=== PATIENT | female | born 1980 | race American Indian/Alaskan Native ===

== ENCOUNTER 2017-08-09 14:43 | Emergency (ER) | payer MEDICAID ==
--- NOTE | 2017-08-09 16:03 | Emergency Department Report ---
Blank Doc - Documentation Documentation: Patient is a 37-year-old female who is presenting with 1 day of vaginal bleeding. Patient notes some dark blood and her pain liner. Patient is approximately 9 weeks . Patient LAST WEEK THAT SHOWED A VIABLE IUP AT 8 WEEKS. PATIENT STATES OF SOME MILD CRAMPY ABDOMINAL PAIN. PATIENT STATES THAT SHE HAS HAD 3 PRIOR MISCARRIAGES. PATIENT DENIES ANY FEVERS CHILLS NAUSEA VOMITING. PATIENT'S RH STATUS IS A POSITIVE AND THEREFORE SHE DOES NOT NEED A REPEAT OF HER BLOOD TYPING. PATIENT MOVED FAST TRACK AREA FOR BETA QUANT, URINALYSIS, AND ULTRASOUND TO ASSESS VIABILITY VIABILITY OF THE PATIENT'S . PATIENT to BE REASSESSED.
[2017-08-09 16:49] LABS: Bilirubin,Urine NEG (Negative); Blood,Urine LG (Negative); Color,Urine Yellow (Yellow); Mucus,Urine 3+ /HPF; Urobilinogen,Urine < 2.0 mg/dL (<2.0)
--- NOTE | 2017-08-09 18:48 | Emergency Department Report ---
ED Female HPI - General Chief complaint: Vaginal Bleeding Stated complaint: VAGINAL BLEEDING/ Time Seen by Provider: 08/09/17 15:53 Source: patient Mode of arrival: Ambulatory Limitations: No Limitations - History of Present Illness Initial comments: Patient is a 37-year-old female who is presenting with 1 day of vaginal bleeding. Patient notes some dark blood and her pain liner. Patient is approximately 9 weeks . Patient LAST WEEK THAT SHOWED A VIABLE IUP AT 8 WEEKS. PATIENT STATES OF SOME MILD CRAMPY ABDOMINAL PAIN. PATIENT STATES THAT SHE HAS HAD 3 PRIOR MISCARRIAGES. PATIENT DENIES ANY FEVERS CHILLS NAUSEA VOMITING. PATIENT'S RH STATUS IS A POSITIVE AND THEREFORE SHE DOES NOT NEED A REPEAT OF HER BLOOD TYPING. PATIENT MOVED FAST TRACK AREA FOR BETA QUANT, URINALYSIS, AND ULTRASOUND TO ASSESS VIABILITY VIABILITY OF THE PATIENT'S . PATIENT to BE REASSESSED. MD Complaint: vaginal bleeding (spotting light x 1 day ) Onset/Timin -: days(s) Severity scale (0 -10): 2 Consistency: intermittent Improves with: none Worsens with: none Are you Now?: Yes Last Menstrual Period: 06/07/17 EDC: 03/14/18 Associated Symptoms: vaginal bleeding - Related Data Sexually active: Yes Previous Rx's Medication Instructions Recorded Last Taken Type Acetaminophen [Acetaminophen ER 650 mg PO QID PRN #30 tablet.er 08/09/17 Unknown Rx TAB] Allergies Allergy/AdvReac Type Severity Reaction Status Date / Time No Known Allergies Allergy Unverified 10/17/15 08:00 ED Review of Systems ROS: Stated complaint: VAGINAL BLEEDING/ Other details as noted in HPI Constitutional: denies: chills, fever Eyes: denies: eye pain, eye discharge, vision change ENT: denies: ear pain, throat pain Respiratory: denies: cough, shortness of breath, wheezing Cardiovascular: denies: chest pain, palpitations Endocrine: no symptoms reported Gastrointestinal: denies: abdominal pain, nausea, diarrhea Genitourinary: other (vaginal spotting ). denies: urgency, dysuria, frequency, hematuria, discharge, abnormal menses, dyspareunia Musculoskeletal: denies: back pain, joint swelling, arthralgia Skin: denies: rash, lesions Neurological: as per HPI Psychiatric: denies: anxiety, depression Hematological/Lymphatic: as per HPI ED Past Medical Hx - Past Medical History Additional medical history: - Surgical History Additional Surgical History: x1 - Social History Smoking Status: Current Every Day Smoker Substance Use Type: Alcohol, Non Opiate Pain - Medications Home Medications: Home Medications Medication Instructions Recorded Confirmed Last Taken Type Acetaminophen [Acetaminophen ER 650 mg PO QID PRN #30 tablet.er 08/09/17 Unknown Rx TAB] ED Physical Exam - General Limitations: No Limitations General appearance: alert, in no apparent distress - Head Head exam: Present: atraumatic, normocephalic - Eye Eye exam: Present: normal appearance - ENT ENT exam: Present: mucous membranes moist - Neck Neck exam: Present: normal inspection - Respiratory Respiratory exam: Present: normal lung sounds bilaterally. Absent: respiratory distress - Cardiovascular Cardiovascular Exam: Present: regular rate, normal rhythm. Absent: systolic murmur, diastolic murmur, rubs, gallop - GI/Abdominal GI/Abdominal exam: Present: soft, normal bowel sounds. Absent: distended, tenderness, guarding, rebound, rigid, organomegaly, mass, bruit, pulsatile mass , hernia - Rectal Rectal exam: Present: deferred - External exam: Present: other (deferred per patient) - Extremities Exam Extremities exam: Present: normal inspection - Back Exam Back exam: Present: normal inspection - Neurological Exam Neurological exam: Present: alert, oriented X3, CN II-XII intact, normal gait, reflexes normal - Psychiatric Psychiatric exam: Present: normal affect, normal mood - Skin Skin exam: Present: warm, dry, intact, normal color. Absent: rash ED Course Vital Signs 08/09/17 14:56 Temperature 98.5 F Pulse Rate 92 H Respiratory 16 Rate Blood Pressure 131/80 O2 Sat by Pulse 99 Oximetry ED Medical Decision Making - Lab Data Laboratory Tests 08/09/17 08/09/17 16:29 16:32 HCG, Quant [id number] H Urine Color Yellow Urine Turbidity Clear Urine pH 5.0 Ur Specific [place] 1.030 Urine Protein 30 mg/dl Urine Glucose (UA) Neg Urine Ketones 20 Urine Blood Lg Urine Nitrite Neg Urine Bilirubin Neg Urine Urobilinogen < 2.0 Ur Leukocyte Esterase Neg Urine WBC (Auto) 1.0 Urine RBC (Auto) 4.0 U Epithel Cells (Auto) 5.0 Urine Mucus 3+ - Radiology Data Radiology results: report reviewed, image reviewed intact single IUP 9 weeks 0 days, hr 171 - Medical Decision Making The patient denies vaginal bleeding thistime no cramping no nausea vomiting no fever chills hCG 14764, UA normal ultrasound single IUP 9 weeks 0 days heart rate 171 intact IUP discussed symptoms of threatening miscarriage patient has good [employer] follow-up will follow with Dr. Davis tomorrow at [facility] [employer] patient has confirmed appointment for same patient will DC DC'd to home in stable condition at this time. Critical care attestation.: If time is entered above; I have spent that time in minutes in the direct care of this critically ill patient, excluding procedure time. ED Disposition Clinical Impression: Vaginal bleeding during Disposition: DC-01 TO HOME OR SELFCARE Is pt being admited?: No Does the pt Need Aspirin: No Condition: Good Instructions: Threatened Miscarriage (ED) Prescriptions: Acetaminophen [Acetaminophen ER TAB] 650 mg PO QID PRN #30 tablet.er PRN Reason: Pain Referrals: BIPIN TREJO MD [Primary Care Provider] - 3-5 Days Forms: Work/School Release Form(ED) Time of Disposition: 18:51
--- NOTE | 2017-08-09 19:03 | Ultrasound Report ---
FINAL REPORT PROCEDURE: US OB TRANSVAGINAL and transabdominal TECHNIQUE: Real-time transabdominal and transvaginal sonography of the uterus, placenta, amniotic fluid, adnexa, and fetus was performed with image documentation. Measurements were obtained to determine age/size. M-mode Doppler was used to document heartbeat. CPT 67717 and 83648 HISTORY: preg with vag bleeding COMPARISON: No prior studies are available for comparison. FINDINGS: ADDITIONAL GESTATION: None. CRL: 22.8 mm, which corresponds to a gestational age of: 9 weeks, 0 days. Yolk Sac: Normal. Embryonic Cardiac Activity: 176 beats per minute Gestational Sac: Normal. Amniotic fluid: Normal. Cervix: Normal. Right Ovary: Complex cystic structure is present, measuring up to 2.1 centimeters Left Ovary: Normal. Estimated delivery date: 03/14/2018 Uterus and adnexa: There are 2 posterior mural fibroids in the uterine body, measuring up to 1.8 centimeters. IMPRESSION: 1. Single live intrauterine gestation at approximately 9 weeks, 0 days. 2. EDC by US 03/14/2018 3. Complete anatomic survey at 18-20 weeks suggested.
--- NOTE | 2017-08-09 19:05 | Ultrasound Report ---
FINAL REPORT PROCEDURE: US OB TRANSVAGINAL and transabdominal TECHNIQUE: Real-time transabdominal and transvaginal sonography of the uterus, placenta, amniotic fluid, adnexa, and fetus was performed with image documentation. Measurements were obtained to determine age/size. M-mode Doppler was used to document heartbeat. CPT 80835 and 77657 HISTORY: preg with vag bleeding COMPARISON: No prior studies are available for comparison. FINDINGS: ADDITIONAL GESTATION: None. CRL: 22.8 mm, which corresponds to a gestational age of: 9 weeks, 0 days. Yolk Sac: Normal. Embryonic Cardiac Activity: 176 beats per minute Gestational Sac: Normal. Amniotic fluid: Normal. Cervix: Normal. Right Ovary: Complex cystic structure is present, measuring up to 2.1 centimeters Left Ovary: Normal. Estimated delivery date: 03/14/2018 Uterus and adnexa: There are 2 posterior mural fibroids in the uterine body, measuring up to 1.8 centimeters. IMPRESSION: 1. Single live intrauterine gestation at approximately 9 weeks, 0 days. 2. EDC by US 03/14/2018 3. Complete anatomic survey at 18-20 weeks suggested. PROCEDURE: TECHNIQUE: HISTORY: COMPARISON: FINDINGS: IMPRESSION:
[2017-08-09 19:17] VITALS: BP 128/79
== END 2017-08-09 19:05 | disposition home or self-care (01) ==
LOC: ED 14:43
DX: O46.91 Antepartum hemorrhage, unspecified, first trimester (principal); F17.200 Nicotine dependence, unspecified, uncomplicated; Z3A.09 9 weeks gestation of pregnancy
CPT/HCPCS: 36415; 76801; 76817; 81001; 84702

== ENCOUNTER 2018-03-07 05:55 | Inpatient (IN) | payer MEDICAID ==
[2018-03-07] MEDS ORDERED: PEPCID IV ONE (06:25)
[2018-03-07] MEDS ORDERED: REGLAN IV ONE (06:25)
[2018-03-07] MEDS ORDERED: BICITRA PO ONE (06:25)
[2018-03-07 06:48] LABS: Basophils % (Auto) 0.5 % (0.0-1.8); Eosinophils # (Auto) 0.2 K/mm3 (0.0-0.4); Eosinophils % (Auto) 2.7 % (0.0-4.3); Hematocrit 35.5 % (30.3-42.9); Hemoglobin 11.7 gm/dl (10.1-14.3); Lymphocytes # (Auto) 1.5 K/mm3 (1.2-5.4); Lymphocytes % (Auto) 23.9 % (13.4-35.0); Mean Corpuscular HGB Conc 33 % (30-34); Mean Corpuscular Volume 83 fl (79-97); Monocytes # (Auto) 0.5 K/mm3 (0.0-0.8); Monocytes % (Auto) 7.9 % (0.0-7.3); Platelet Count 255 K/mm3 (140-440); Red Blood Count 4.31 M/mm3 (3.65-5.03)
[2018-03-07] MEDS ORDERED: PITOCin/NS 20 UNIT/1000ML DRIP 20 UNITS/1,000 ML BAG IV SCH ×4 (07:00→18:00)
[2018-03-07] MEDS ORDERED: ANCEF/STERILE WATER 2 GM/20 ML 2 GM/20 ML SYRINGE IV NR (07:00)
[2018-03-07] MEDS: LACTATED RINGERS 1,000 ML IV SCH ×2 (07:00→07:32)
--- NOTE | 2018-03-07 07:42 | History and Physical Report ---
History of Present Illness Date of examination: 03/07/18 Date of admission: 03/07/18 05:55 Chief complaint: scheduled repeat History of present illness: This is a 38 yo at 39 weeks EDC 03/14/18 here for scheduled repeat csec and salpingectomy. Patient has a history of fibroids and AMA and MO. Patient seen by high risk and followed. She is a patient of [facility] care at 10 weeks. Past History Past Medical History: no pertinent history, other (Fibroids) Past Surgical History: section Family/Genetic History: hypertension Social history: . denies: smoking, alcohol abuse, prescription drug abuse - Obstetrical History Expected Date of Delivery: 03/14/18 Actual Gestation: 39 Week(s) 0 Day(s) : 5 Para: 1 Hx # Term Pregnancies: 1 Number of Pregnancies: 0 Spontaneous Abortions: 3 Induced : 0 Number of Living Children: 1 Medications and Allergies Allergies Allergy/AdvReac Type Severity Reaction Status Date / Time No Known Allergies Allergy Verified 03/07/18 06:25 Home Medications Medication Instructions Recorded Confirmed Last Taken Type Acetaminophen [Acetaminophen ER 650 mg PO QID PRN #30 tablet.er 08/09/17 Unknown Rx TAB] Active Meds: Active Medications Citric Acid/Sodium Citrate (Bicitra) 30 ml PO ONCE ONE Stop: 03/07/18 07:35 Famotidine (Pepcid) 20 mg IV ONCE ONE Stop: 03/07/18 07:35 Lactated Ringer's (Lactated Ringers) 1,000 mls @ 2,250 mls/hr IV PREOP ROCIO Stop: 03/08/18 07:27 Last Admin: 03/07/18 07:32 Dose: 2,250 mls/hr Documented by: Oxytocin/Sodium Chloride (Pitocin/Ns 20 Unit/1000ml Drip) 20 units in 1,000 mls @ 0 mls/hr IV TITR ROCIO Lactated Ringer's (Lactated Ringers) 1,000 mls @ 2,250 mls/hr IV PREOP ROCIO Stop: 03/08/18 08:27 Oxytocin/Sodium Chloride (Pitocin/Ns 20 Unit/1000ml Drip) 20 units in 1,000 mls @ 0 mls/hr IV TITR ROCIO Metoclopramide HCl (Reglan) 10 mg IV ONCE ONE Stop: 03/07/18 07:35 Review of Systems All systems: negative - Vital Signs Vital signs: Vital Signs Pulse BP 121 H 136/89 03/07/18 06:24 03/07/18 06:24 Temp Pulse Resp BP Pulse Ox 98.5 F 102 H 20 143/98 03/07/18 06:54 03/07/18 07:08 03/07/18 06:54 03/07/18 07:08 - Physical Exam Breasts: Positive: normal Cardiovascular: Regular rate, Normal S1 Lungs: Positive: Clear to auscultation, Normal air movement Abdomen: Positive: normal appearance, soft, normal bowel sounds. Negative: distention, tenderness, guarding Genitourinary (Female): Positive: normal external genitalia, normal perenium Vulva: both: normal Vagina: Positive: normal moisture Uterus: Positive: normal size, normal contour Extremities: Positive: normal Deep Tendon Reflex Grade: Normal +2 - Obstetrical FHR: category 1 Results Result Diagrams: 03/07/18 06:39 Abnormal lab results 03/07/18 Range/Units 06:39 MCH 27 L (28-32) pg RDW 16.0 H (13.2-15.2) % [place] % (Auto) 7.9 H (0.0-7.3) % All other labs normal. Assessment and Plan A/P scheduled repeat csec and salpingectomy discussed r/b/a of procedure which include bleeding infection damage to pelvic and non pelvic organs risk of hysterectomy and , blood clots. consents signed all questions answered to proceed to OR
[2018-03-07] MEDS ORDERED: BICITRA PO NR (08:00)
[2018-03-07] MEDS ORDERED: PEPCID IV NR (08:00)
[2018-03-07] MEDS ORDERED: LACTATED RINGERS 1,000 ML IV SCH (08:00)
[2018-03-07] MEDS ORDERED: REGLAN IV NR (08:00)
[2018-03-07] MEDS ORDERED: ZOFRAN ONE ×2 (08:02→12:54)
[2018-03-07] MEDS ORDERED: SUBLIMAZE ONE ×2 (08:02→12:54)
[2018-03-07] MEDS ORDERED: ASTRAMORPH PF 10MG/10ML ONE ×2 (08:02→12:54)
[2018-03-07] MEDS ORDERED: NEO SYNEPHRINE ONE ×2 (08:02→08:39)
--- NOTE | 2018-03-07 09:10 | Procedure Note ---
OB Delivery Note - Delivery Date of Delivery: 03/07/18 Surgeon: AMY HUSTON Estimated blood loss: other (700cc) - Section Preop diagnosis: repeat Postop diagnosis: same section procedure: section Disposition: PACU Complications: none - A at 1 minute: 8 at 5 minutes: 9 Infant Gender: Female
--- NOTE | 2018-03-07 09:17 | Operative Report ---
Operative Report Operative Report: PREOPERATIVE DIAGNOSES: 1. Intrauterine at 39 weeks. 2. History of previous section x1. The patient desires a repeat section. 3. Chronic hypertension. 4. Undesired future fertility. The patient desires permanent sterilization. POSTOPERATIVE DIAGNOSES: 1. Intrauterine at 39 weeks. 2. History of previous section x2. The patient desires a repeat section. 3. Chronic hypertension. 4. Undesired future fertility. The patient desires permanent sterilization. PROCEDURE PERFORMED: Repeat section and salpingectomy ANESTHESIA: Spinal. ESTIMATED BLOOD LOSS: 700 mL. COMPLICATIONS: None. FINDINGS: Female in cephalic presentation with anteflexed head, Apgars were 8 at 1 minute and 9 at 5 minutes, , and weight 8 pounds 3 ounces. Normal uterus, several fibroids fundal and anterior approximate measure of 2-3 cm . tubes, and ovaries were noted. INDICATIONS: The patient is a 38-year-old 5, para 1 female, who presented to repeat section at term. The patient has a history of 1 previous sections and she desires a repeat section, additionally she desires permanent fertilization. The procedure was described to the patient in detail including possible risks of bleeding, infection, injury to surrounding organs, and the possible need for further surgery and informed consent was obtained. PROCEDURE NOTE: The patient was taken to the operating room where spinal anesthesia was administered without difficulty. The patient was prepped and draped in the usual sterile fashion in the dorsal supine position with a leftward tilt. A Pfannenstiel skin incision was made with the scalpel and carried through to the underlying layer of fascia using the Bovie. The fascia was incised in the midline and extended laterally using Marley scissors. Juan Carlos clamps were used to elevate the superior aspect of the fascial incision, which was elevated, and the underlying rectus muscles were dissected off bluntly and using Marley scissors. Attention was then turned to the inferior aspect of the fascial incision, which in similar fashion was grasped with Juan Carlos clamps, elevated, and the underlying rectus muscles were dissected off bluntly and using the Bovie. The rectus muscles were dissected in the midline. The peritoneum was identified and entered using Metzenbaum scissors; this incision was extended superiorly and inferiorly with good visualization of the bladder. The bladder blade was inserted. The vesicouterine peritoneum was identified and entered sharply using Metzenbaum scissors. This incision was extended laterally and the bladder flap was created digitally. The bladder blade was reinserted. The lower uterine segment was incised in a transverse fashion using the scalpel and extended using bandage scissors as well as manual traction. Clear fluid was noted. The was subsequently delivered using a Ria vacuum due to anteflexed head and difficulty in delivering the 's head without the Ria. The nose and mouth were bulb suctioned. The cord was clamped and cut. The was subsequently handed to the awaiting nursery nurse. The placenta was delivered spontaneously intact with a three-vessel cord noted. The uterus was exteriorized and cleared of all clots and debris. The uterine incision was repaired in 2 layers using 0 chromic sutures. Hemostasis was visualized. Attention was turned to the right fallopian tube, which was grasped with Luz Elena clamp using a ligasure apparatus an entire tube ligated and removed, transected and specimen was sent to pathology. Attention was then turned to the left fallopian tube, which was grasped with Luz Elena clamp again using ligasure apparatus an entire tube was ligated and transected. Hemostasis was visualized bilaterally. The uterus was returned to the abdomen, both fallopian tubes were visualized and were noted to be hemostatic. The uterine incision was reexamined and it was noted to be hemostatic. The pelvis was copiously irrigated. The rectus muscles were reapproximated in the midline using 3-0 Vicryl. The fascia was closed with 0 Vicryl suture, the subcutaneous layer was closed with 3-0 plain gut, and the skin was closed doreen needle . Sponge, lap, and instrument counts were correct x2. The patient was stable at the completion of the procedure and was subsequently transferred to the recovery room in stable condition.
[2018-03-07] MEDS ORDERED: NARCAN 0.4 MG/1 ML IV PRN ×2 (09:30→17:14)
[2018-03-07] MEDS ORDERED: TUCKS PAD TP PRN ×2 (09:30→17:14)
[2018-03-07] MEDS ORDERED: LANSINOH TP PRN ×2 (09:30→17:14)
--- NOTE | 2018-03-07 09:34 | Anesthesia Consultation ---
Anesthesia Consult and Med Hx Date of service: 03/07/18 - Airway Anesthetic Teeth Evaluation: Good ROM Head & Neck: Adequate Mental/Hyoid Distance: Adequate Mallampati Class: Class II Intubation Access Assessment: Good - Pulmonary Exam CTA: Yes - Cardiac Exam Cardiac Exam: RRR - Pre-Operative Health Status ASA Pre-Surgery Classification: ASA1, ASA2 Proposed Anesthetic Plan: Spinal - Pulmonary Hx Smoking: No Hx Asthma: No Hx Respiratory Symptoms: No SOB: No COPD: No Home Oxygen Therapy: No Hx Pneumonia: No Hx Sleep Apnea: No - Cardiovascular System Hx Hypertension: No Hx Coronary Artery Disease: No Hx Heart Attack/AMI: No Hx Angina: No Hx Percutaneous Transluminal Coronary Angioplasty (PTCA): No Hx Cardia Arrhythmia: No Hx Pacemaker: No Hx Internal Defibrillator: No Hx Valvular Heart Disease: No Hx Heart Murmur: No - Central Nervous System Hx Neuromuscular Disorder: No Hx Seizures: No CVA: No Hx Back Pain: No Hx Psychiatric Problems: No - Gastrointestinal Hx Ulcer: No Hx Gastroesophageal Reflux Disease: No - Endocrine Hx Renal Disease: No Hx Hypothyroidism: No Hx Hyperthyroidism: No - Hematic Hx Anemia: No Hx Sickle Cell Disease: No - Other Systems Hx Alcohol Use: No Hx Substance Use: No Hx Cancer: No Hx Obesity: Yes
[2018-03-07] MEDS ORDERED: NACL 0.9% IR ONE (09:43)
[2018-03-07] MEDS ORDERED: WATER FOR IRRIG STERILE IR ONE (09:43)
[2018-03-07] MEDS ORDERED: SODIUM CHLORIDE FLUSH SYRINGE 10 ML IV PRN (10:00)
--- NOTE | 2018-03-07 11:14 | Post Anesthesia Evaluation ---
- Post Anesthesia Evaluation Patient Participated: Yes Airway Patent: Yes Stable Respiratory Function: Yes Nausea/Vomiting: No Temp > 96.8F: Yes Pain Manageable: Yes Adequeate Hydration: Yes Anesthesia Complications: No Block Receding Appropriately: Yes Patient on Ventilator: Yes
[2018-03-07 11:22] LABS: Basophils % (Auto) 0.1 % (0.0-1.8); Eosinophils # (Auto) 0.1 K/mm3 (0.0-0.4); Eosinophils % (Auto) 2.2 % (0.0-4.3); Hematocrit 36.6 % (30.3-42.9); Lymphocytes # (Auto) 1.2 K/mm3 (1.2-5.4); Lymphocytes % (Auto) 21.9 % (13.4-35.0); Mean Corpuscular HGB Conc 33 % (30-34); Mean Corpuscular Volume 81 fl (79-97); Monocytes # (Auto) 0.4 K/mm3 (0.0-0.8); Monocytes % (Auto) 6.4 % (0.0-7.3); Platelet Count 269 K/mm3 (140-440); Red Blood Count 4.51 M/mm3 (3.65-5.03)
[2018-03-07] MEDS ORDERED: NEO SYNEPHRINE/NS Syringe(OR USE) IV ONE (12:53)
[2018-03-07] MEDS ORDERED: ZOFRAN IV PRN (17:14)
[2018-03-07] MEDS ORDERED: PERCOCET 5/325 PO PRN (17:14)
[2018-03-07] MEDS ORDERED: TORADOL IV PRN (17:14)
[2018-03-07] MEDS ORDERED: DILAUDID IV PRN (17:14)
[2018-03-07] MEDS ORDERED: MORPHINE IV PRN ×2 (17:14)
[2018-03-07] MEDS ORDERED: MYLICON PO PRN (17:14)
[2018-03-07] MEDS ORDERED: ANUCORT-HC PR PRN (17:14)
[2018-03-07] MEDS ORDERED: NORCO 5/325 PO PRN (17:14)
[2018-03-07] MEDS ORDERED: IBUPROFEN PO PRN (17:14)
[2018-03-07] MEDS ORDERED: MILK OF MAGNESIA PO PRN (17:14)
[2018-03-07] MEDS ORDERED: PHENERGAN PR PRN (17:14)
[2018-03-07] MEDS ORDERED: TYLENOL PO PRN (17:14)
[2018-03-07] MEDS ORDERED: SENOKOT PO PRN (17:14)
[2018-03-07] MEDS ORDERED: SODIUM CHLORIDE FLUSH SYRINGE 10 ML IV NR (18:00)
[2018-03-07] MEDS: TORADOL IV PRN (18:49)
[2018-03-07 22:39] LABS: Hemoglobin 11.7 gm/dl (10.1-14.3)
[2018-03-08] MEDS: TORADOL IV PRN (00:03)
[2018-03-08] MEDS ORDERED: D5LR 1,000 ML IV SCH (01:00)
[2018-03-08 05:51] LABS: Hematocrit 32.9 % (30.3-42.9); Hemoglobin 10.7 gm/dl (10.1-14.3)
[2018-03-08] MEDS ORDERED: BOOSTRIX IM ONE (06:00)
[2018-03-08] MEDS ORDERED: M-M-R II VACCINE SUB-Q ONE (06:00)
[2018-03-08] MEDS: FEOSOL PO SCH (10:14)
[2018-03-08] MEDS: PRENATAL VITAMIN PO SCH (10:14)
--- NOTE | 2018-03-08 13:30 | Progress Note ---
Assessment and Plan - Patient Problems (1) Previous section Current Visit: Yes Status: Acute Subjective - Subjective Date of service: 03/08/18 Interval history: Patient without complaints. Tolerating regular diet. Pain well controlled Patient reports: appetite normal, voiding normally, pain well controlled : doing well Objective - Vital Signs Latest vital signs: Vital Signs Temp Pulse Resp BP BP Pulse Ox 03/08/18 07:43 97.3 F L 94 H 18 109/76 03/08/18 04:25 98.1 F 104 H 20 140/87 98 03/08/18 00:56 98.1 F 95 H 20 127/84 99 03/07/18 20:30 97.9 F 100 H 20 146/89 99 03/07/18 16:15 98.0 F 99 H 20 138/88 95 Intake and Output 03/07/18 03/08/18 03/08/18 22:59 06:59 14:59 Intake Total 360 480 Output Total 150 400 200 Balance -150 -40 280 Intake: Oral 360 480 Output: Urine 150 400 200 Indwelling Catheter 150 200 Void 200 200 Other: Total, Intake Amount 120 480 Total, Output Amount 150 200 200 # Voids Void 1 2 - Exam Abdomen: Present: normal appearance, soft
--- NOTE | 2018-03-08 13:31 | Discharge Summary ---
Providers - Providers Date of Admission: 03/07/18 05:55 Date of discharge: 03/09/18 Attending physician: AMY HUSTON MD Primary care physician: AMY HUSTON MD Hospitalization Reason for admission: section Delivery: Procedure: section, bilateral tubal ligation, repeat low transverse Incision: normal Discharge diagnosis: IUP at term delivered [place] baby: female Hospital course: Patient admitted the day of surgery for a repeat . See op note. Postop unremarkable Condition at discharge: Good Disposition: DC-01 TO HOME OR SELFCARE - Discharge Diagnoses (1) Previous section Status: Acute Plan - Discharge Medications Prescriptions: Ferrous Sulfate 325 mg PO BID #60 tablet. Ibuprofen [Motrin] 600 mg PO Q8H PRN #30 tablet PRN Reason: Pain oxyCODONE /ACETAMINOPHEN [Percocet 5/325] 1 tab PO Q6HR PRN #30 tablet PRN Reason: Pain - Provider Discharge Summary Activity: no sex for 6 weeks, no heavy lifting 4 weeks, no strenuous exercise Diet: routine Instructions: routine Additional instructions: [] Smoking cessation referral if applicable(refer to patient education folder for contact #) [] Refer to [facility] Booklet Call your doctor immediately for: * Fever > 100.5 * Heavy vaginal bleeding ( >1 pad per hour) * Severe persistent headache * Shortness of breath * Reddened, hot, painful area to leg or breast * Drainage or odor from incision. * Keep incision clean and dry at all times and follow doctor's instructions regarding bathing/showering schedule followup in 2 weeks - Follow up plan
[2018-03-09] MEDS: FEOSOL PO SCH (10:00)
[2018-03-09] MEDS: PRENATAL VITAMIN PO SCH (10:00)
[2018-03-09 13:49] VITALS: BP 133/94
== END 2018-03-09 13:45 | disposition home or self-care (01) | DRG 765 ==
LOC: APU 05:55 → OB 10:42
PROVIDERS: ADMIT Obstetrics & Gynecology; ATTEND Obstetrics & Gynecology
PROC: 10D00Z1 Extraction of Products of Conception, Low, Open Approach (ICD-10-PCS; principal; 2018-03-07)
PROC: 0UB70ZZ Excision of Bilateral Fallopian Tubes, Open Approach (ICD-10-PCS; 2018-03-07)
PROC: 3E0234Z Introduction of Serum, Toxoid and Vaccine into Muscle, Percutaneous Approach (ICD-10-PCS; 2018-03-08)
DX: O34.211 Maternal care for low transverse scar from previous cesarean delivery (principal); O10.92 Unspecified pre-existing hypertension complicating childbirth; O99.214 Obesity complicating childbirth; E66.01 Morbid (severe) obesity due to excess calories; Z82.49 Family history of ischemic heart disease and other diseases of the circulatory system; Z3A.39 39 weeks gestation of pregnancy; Z37.0 Single live birth; Z79.899 Other long term (current) drug therapy; Z23 Encounter for immunization
CPT/HCPCS: 36415; 59025; 85014; 85018; 85025; 86850; 86900; 86901; 88302; 96360; 96374; 96375; G0378; C9250; J0690; J1885; J2274; J2370; J2405; J2590; J2765; J3010; J7120; J7121